=== PATIENT | male | born 1970 | race Caucasian/White ===

== ENCOUNTER 2017-08-19 14:30 | Emergency (ER) | payer OTHER ==
[2017-08-19] MEDS ORDERED: methylPREDNISolone Sodium Succinate 125 MG/2 ML SDV IM ONE (15:32)
--- NOTE | 2017-08-19 15:34 | EDM.PDOC ---
ED HPI GENERAL MEDICAL PROBLEM - General Chief Complaint: Bite:Animal, Insect Stated Complaint: BEE STING,USED EPI PEN Time Seen by Provider: 08/19/17 14:55 Source of Information: Reports: Patient History Limitations: Reports: No Limitations - History of Present Illness INITIAL COMMENTS - FREE TEXT/NARRATIVE: pt was stung by a bee on the [place] about 1 hr ago. he did do a epipen and is feeling ok except he is feeling warm all over. Onset: Today, Sudden Duration: Hour(s): Location: Reports: Other (pt is not feeling sob. ) Associated Symptoms: Reports: No Other Symptoms, Other (pt has been out in the sun today with no shirt. ) - Related Data Allergies Allergy/AdvReac Type Severity Reaction Status Date / Time acetaminophen [From Vicodin] Allergy Nausea Verified 08/19/17 15:04 bee venom protein (honey bee) Allergy Hives Verified 08/19/17 15:04 hydrocodone [From Vicodin] Allergy Nausea Verified 08/19/17 15:04 prochlorperazine Allergy Excitabilit Verified 08/19/17 15:04 [From Compazine] y Home Meds: Home Meds . [Unable to Verify Home Med List] 08/19/17 [History] Past Medical History Cardiovascular History: Reports: Hypertension - Past Surgical History Musculoskeletal Surgical History: Reports: Arthroscopic Knee Social & Family History - Tobacco Use Smoking Status *Q: Never Smoker - Recreational Drug Use Recreational Drug Use: No ED ROS GENERAL - Review of Systems Review Of Systems: See Below Constitutional: Reports: No Symptoms HEENT: Reports: No Symptoms Respiratory: Reports: No Symptoms, Other (pt does not feel sob. ) Cardiovascular: Reports: No Symptoms Endocrine: Reports: No Symptoms GI/Abdominal: Reports: No Symptoms : Reports: No Symptoms ED EXAM, ANIMAL BITE - Physical Exam Exam: See Below Text/Narrative:: pt was stung by a bee about 1 hr prior to arrival to the er. He had used his epipen and was not having a severe reaction. He did look quite red on his back and chest . He was out all morning without a shirt. Exam Limited By: No Limitations General Appearance: Alert, Anxious, Other (pupils equal and reactive. ) Ears: Normal TMs Nose: Normal Inspection Throat/Mouth: Normal Inspection Head: Atraumatic Neck: Normal Inspection Respiratory/Chest: No Respiratory Distress, Other ( no wheezing present. ) Cardiovascular: Regular Rate, Rhythm, Tachycardia GI/Abdominal: Soft, Non-Tender (Male) Exam: Deferred Rectal (Males) Exam: Deferred Extremities: Normal Inspection Skin Exam: Other ( the back and chest--upper did look red but did not show hives. He was out in the sun all morning with no shirt. ) Course - Vital Signs Last Recorded V/S: Last Vital Signs Temp 36.1 C 08/19/17 14:57 Pulse 110 H 08/19/17 14:57 Resp 15 08/19/17 14:57 BP 197/98 H 08/19/17 14:57 Pulse Ox 92 L 08/19/17 14:57 - Orders/Labs/Meds Meds: Medications Discontinued Medications Generic Name Dose Route Start Last Admin Trade Name Ramona PRN Reason Stop Dose Admin Methylprednisolone Sodium Succinate 125 mg 08/19/17 15:32 08/19/17 15:43 Solu-Medrol IM 08/19/17 15:33 125 mg ONETIME ONE Administration - Re-Assessments/Exams Free Text/Narrative Re-Assessment/Exam: 08/19/17 16:11 pt was given solumedrol 125 im and he was watched. He remained stable and had no further problems. He was discharged with a perscription for a epipen and was advised to use benadry 50mg in 6 hours. Departure - Departure Time of Disposition: 16:04 Disposition: Home, Self-Care 01 Clinical Impression: Bee sting - Discharge Information Instructions: Bee, Wasp, or Hornet Sting, Adult Referrals: PCP,None [Primary Care Provider] - Forms: ED Department Discharge Care Plan Goals: epipen, use benadryl 50mg one more time in 4-6 hours.
== END 2017-08-19 16:11 | disposition home or self-care (01) ==
LOC: JP.ED 14:30
DX: T63.441A Toxic effect of venom of bees, accidental (unintentional), initial encounter (principal); I10 Essential (primary) hypertension; Z88.5 Allergy status to narcotic agent; Z88.8 Allergy status to other drugs, medicaments and biological substances
CPT/HCPCS: 96372; 99283; J2930